=== PATIENT | male | born 1955 | race Caucasian/White ===

== ENCOUNTER → 2016-07-08 | Outpatient (CLI) | payer BC ==
--- NOTE | 2016-07-08 13:07 | DX ---
Right hip series 2 views 1156 hours. History: Chronic intermittent right hip pain. Findings: There is mild to moderate hip joint space narrowing bilaterally with small marginal osteoph ytes. There is mild thickening of the superolateral aspect of each femoral head and neck. This can co ntribute to femoral acetabular impingement type anatomy. There are no fractures or abnormal lytic or sclerotic osseous lesions. The SI joints and symphysis are normal in appearance. Degenerative changes are evident of the lower lumbar spine. Soft tissues are unremarkable. Impression: 1. 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 2. 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 3. Degenerative changes lower lumbar spine.
== END ==
LOC: BMCIMAGING 11:59
PROVIDERS: ATTEND Internal Medicine
DX: M16.0 Bilateral primary osteoarthritis of hip (principal); M51.36 Other intervertebral disc degeneration, lumbar region

== ENCOUNTER → 2018-02-28 | Outpatient (CLI) | payer BC | LOC: BMCIMAGING 09:01 → EDSTATUS 09:03 | PROVIDERS: ATTEND Orthopaedic Surgery | DX: M16.0 Bilateral primary osteoarthritis of hip (principal) ==

== ENCOUNTER → 2018-03-07 | Outpatient (CLI) | payer BC | LOC: BMCIMAGING 08:59 | PROVIDERS: ATTEND Orthopaedic Surgery | DX: M16.11 Unilateral primary osteoarthritis, right hip (principal) ==